=== PATIENT | male | born 1960 | race Hispanic/Latino ===

== ENCOUNTER 2017-08-06 09:41 | Emergency (ER) | payer OTHER ==
[~2017-08-06] VITALS: Ht 167.6 cm; Wt 88.5 kg
[~2017-08-06 09:41] MED LIST: PROTONIX40 MG PO; XARELTO10 MG PO
--- OUTSIDE RECORDS SUMMARY | 2017-08-06 09:47 | XMS REPORT ---
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 Allergies, Adverse Reactions, Alerts This patient has no known allergies or adverse reactions. Medications This patient has no known medications. Results Test Description Test Time Test Comments Text Results Atomic Results Result Comments CHEST SINGLE (PORTABLE) [place] [id number] Patient Name: KAYLI LAMB MR #: [id number] : 1960 Age/Sex: 57/M Req #: [id number] Adm Physician: Ordered by: HEBER FRANCO Report #: [id number] Location: ER Room/Bed: _ Procedure: [id number] DX/CHEST SINGLE (PORTABLE) Exam Date: 06/08/17 Exam Time: 1836 REPORT STATUS: Signed EXAMINATION : CHEST SINGLE (PORTABLE) 06/08/2017 6:25 PM COMPARISON: None INDICATION: Dyspnea, history of DVT DISCUSSION: LINES: None. LUNGS: The lungs are well inflated and clear. No pneumonia or pulmonary edema. PLEURA: No pleural effusion or pneumothorax. HEART AND MEDIASTINUM: The cardiomediastinal silhouette is unremarkable. BONES AND SOFT TISSUES : No acute osseous lesion. The soft tissues are normal. IMPRESSION: No acute cardiopulmonary disease. Jasper Dsouza MD Signed by: Dr. Jasper Dsouza M.D. on 06/08/2017 7:59 PM Dictated By: JASPER DSOUZA MD 60 Transcribed By: YEIMI on 06/08/171958 COPY TO: HEBER FRANCO
== END 2017-08-06 11:00 | disposition home or self-care (01) ==
LOC: FSED 09:41
DX: R50.9 Fever, unspecified (principal); J02.9 Acute pharyngitis, unspecified
CPT/HCPCS: 83518; 99282

== ENCOUNTER → 2017-09-25 | Outpatient (CLI) | payer SELFPAY ==
--- NOTE | 2017-09-25 10:48 | Cardiology Report ---
DATE OF STUDY: September 25, 2017 DOPPLER SCAN OF LEFT UPPER EXTREMITY VEINS The left arm veins were interrogated using the duplex scanning method. The veins were compressible. There was no definite deep venous thrombosis. CONCLUSIONS 1. No definite venous thrombosis seen involving the left arm veins. 2. The right arm was not studied. Job#: [id number] cc:STEFANO FORD MD
== END ==
LOC: RAD 08:38
PROVIDERS: ATTEND Internal Medicine Medical Oncology
DX: I82.622 Acute embolism and thrombosis of deep veins of left upper extremity (principal)
CPT/HCPCS: 93971

== ENCOUNTER 2025-03-27 10:10 | Inpatient (IN) | payer OTHER ==
[2025-03-17 15:15] LABS: BASOPHILS % 0.6 % (0.0-1.0); EOSINOPHILS % 2.0 % (0.0-6.0); LYMPHOCYTES % 16.9 % (18.0-39.1); MONOCYTES % 6.9 % (4.4-11.3); NEUTROPHILS % 73.3 % (38.7-80.0); RED CELL DISTRIBUTION WIDTH 13.0 % (11.7-14.4)
[2025-03-17 15:49] LABS: EST GLOMERULAR FILTRATION RATE 84.0 ML/MIN (>=60)
[~2025-03-27] VITALS: Ht 167.6 cm; Wt 92.5 kg
[~2025-03-27 10:10] MED LIST changes: +ASPIRIN81 MG PO; +FLOMAX0.4 MG PO; +PROTONIX20 MG PO; +VESICARE5 MG PO; +VISION PLUS LU1 EACH
[2025-03-27] MEDS ORDERED: LIDOCAINE HCL 2% LOCAL INJ 5 ML SDV VIAL INJ ONE ×2 (11:16→12:06)
[2025-03-27] MEDS ORDERED: PROPOFOL IV EMULSION 10 MG/ML 20 ML VIAL ONE ×2 (11:16→12:06)
[2025-03-27] MEDS ORDERED: ROCURONIUM BROMIDE 0 ML IV ONE (11:17)
[2025-03-27] MEDS ORDERED: FENTANYL CITRATE/PF 100MCG/2 ML INJ ONE (12:06)
[2025-03-27] MEDS ORDERED: SEVOFLURANE INHAL SOLN 250 ML PEN BTL ONE (12:06)
[2025-03-27] MEDS ORDERED: ROCURONIUM BROMIDE 1 ML IV ONE ×2 (12:06→13:56)
[2025-03-27] MEDS ORDERED: ACETAMINOPHEN 1000 MG/100 ML 100 ML IV ONE (12:06)
[2025-03-27] MEDS ORDERED: SUGAMMADEX SODIUM 200 MG/2 ML VIAL IV ONE (12:06)
[2025-03-27] MEDS ORDERED: EPINEPHRINE HCL 1:1000 1ML 1 MG/ML AMP ONE (12:37)
[2025-03-27] MEDS ORDERED: EPHEDRINE SULFATE INJ 50 MG/ML VIAL ONE (13:14)
[2025-03-27] MEDS ORDERED: LACTATED RINGER'S 1,000 ML ONE (15:00)
[2025-03-27] MEDS: SODIUM CHLORIDE 0.9% 1000ML 1,000 ML IV SCH (16:15)
[2025-03-27] MEDS ORDERED: ACETAMINOPHEN 1000 MG/100 ML IV PRN (16:15)
[2025-03-27] MEDS ORDERED: ONDANSETRON HCL INJ 2MG/ML 2ML 2 MG/ML VIAL IV PRN (16:15)
[2025-03-27] MEDS ORDERED: NALOXONE HCL INJ 0.4 MG/ML AMP IV PRN (16:15)
[2025-03-27] MEDS ORDERED: DIPHENHYDRAMINE HCL INJ 50 MG/ML VIAL IM PRN (16:15)
[2025-03-27] MEDS ORDERED: MORPHINE SULFATE 1 MG/ML 30ML PCA ONE (16:24)
[2025-03-27 16:37] LABS: BASOPHILS % 0.3 % (0.0-1.0); EOSINOPHILS % 0.3 % (0.0-6.0); LYMPHOCYTES % 13.6 % (18.0-39.1); MONOCYTES % 1.9 % (4.4-11.3); NEUTROPHILS % 83.3 % (38.7-80.0); RED CELL DISTRIBUTION WIDTH 13.0 % (11.7-14.4)
[2025-03-27] MEDS: MORPHINE SULFATE 1 MG/ML 30ML PCA IV PRN (16:46)
[2025-03-27 16:55] LABS: EST GLOMERULAR FILTRATION RATE 98.0 ML/MIN (>=60)
[2025-03-27 17:09] VITALS: BP 146/91; PULSE 73; RESP 18; TEMP 98.5; O2SAT 97
[2025-03-27] MEDS: SODIUM CHLORIDE 0.9% 250ML IRRIG IR SCH (17:40)
[2025-03-27 18:40] VITALS: BP 146/91; PULSE 73; RESP 18; TEMP 98.5; O2SAT 97
[2025-03-27 19:48] VITALS: BP 118/81; PULSE 74; RESP 18; TEMP 97.6; O2SAT 94
[2025-03-27] MEDS: CEFAZOLIN SODIUM 2 GM ONE (19:51)
[2025-03-27] MEDS: LACTATED RINGER'S 1,000 ML ONE (19:52)
[2025-03-27] MEDS: SODIUM CHLORIDE 0.9% 1000ML 1,000 ML ONE (19:53)
[2025-03-27 20:00] VITALS: BP 118/81; PULSE 74; RESP 18; TEMP 97.6; O2SAT 94
[2025-03-27 23:59] VITALS: BP 121/79; PULSE 79; RESP 20; TEMP 97.9; O2SAT 97
[2025-03-28] VITALS (10 sets, daily range): BP systolic 102–118; BP diastolic 67–76; PULSE 67–76; RESP 16–20; TEMP 97.7–98.9; O2SAT 96–99
[2025-03-28 04:58] LABS: BASOPHILS % 0.3 % (0.0-1.0); EOSINOPHILS % 0.0 % (0.0-6.0); LYMPHOCYTES % 7.4 % (18.0-39.1); MONOCYTES % 6.4 % (4.4-11.3); NEUTROPHILS % 85.6 % (38.7-80.0); RED CELL DISTRIBUTION WIDTH 12.8 % (11.7-14.4)
[2025-03-28 05:31] LABS: EST GLOMERULAR FILTRATION RATE 93.0 ML/MIN (>=60)
[2025-03-29] VITALS (8 sets, daily range): BP systolic 109–118; BP diastolic 69–77; PULSE 61–77; RESP 18–20; TEMP 97.7–98.1; O2SAT 96–100
[2025-03-29 04:45] LABS: BASOPHILS % 0.4 % (0.0-1.0); EOSINOPHILS % 0.3 % (0.0-6.0); LYMPHOCYTES % 20.5 % (18.0-39.1); MONOCYTES % 8.5 % (4.4-11.3); NEUTROPHILS % 69.9 % (38.7-80.0); RED CELL DISTRIBUTION WIDTH 13.0 % (11.7-14.4)
[2025-03-29 05:14] LABS: EST GLOMERULAR FILTRATION RATE 98.0 ML/MIN (>=60)
[2025-03-29] MEDS ORDERED: Morphine 4mg INJECTION 4 MG/ML INJ IV PRN (08:30)
[2025-03-29] MEDS: ACETAMINOPHEN 1000 MG/100 ML IV PRN (12:06)
[2025-03-29] MEDS: ONDANSETRON HCL INJ 2MG/ML 2ML 2 MG/ML VIAL IV PRN (15:05)
[2025-03-29] MEDS: HYDROCODONE/APAP 7.5MG-325MG 1 EA TAB PO PRN (15:05)
[2025-03-30 04:08] VITALS: BP 127/78; PULSE 63; RESP 18; TEMP 98.1; O2SAT 100
[2025-03-30 05:02] LABS: BASOPHILS % 0.4 % (0.0-1.0); EOSINOPHILS % 1.1 % (0.0-6.0); LYMPHOCYTES % 19.9 % (18.0-39.1); MONOCYTES % 9.5 % (4.4-11.3); NEUTROPHILS % 68.8 % (38.7-80.0); RED CELL DISTRIBUTION WIDTH 13.1 % (11.7-14.4)
[2025-03-30 05:18] LABS: EST GLOMERULAR FILTRATION RATE 102.0 ML/MIN (>=60)
[2025-03-30 06:40] VITALS: PULSE 74; RESP 20; O2SAT 95
[2025-03-30] MEDS: PANTOPRAZOLE SOD 40 MG TABEC PO SCH (07:30)
[2025-03-30 09:51] VITALS: BP 133/86; PULSE 82; RESP 16; TEMP 97.8; O2SAT 98
[2025-03-30 20:00] VITALS: BP 135/86; PULSE 62; RESP 16; TEMP 97.7; O2SAT 99
[2025-03-30 20:40] VITALS: PULSE 74; RESP 18; O2SAT 96
[2025-03-31] VITALS: BP 118/75; PULSE 62; RESP 18; TEMP 97.5; O2SAT 98
[2025-03-31 04:00] VITALS: BP 118/75; PULSE 62; RESP 18; TEMP 97.5; O2SAT 98
[2025-03-31 05:38] LABS: BASOPHILS % 0.5 % (0.0-1.0); EOSINOPHILS % 1.0 % (0.0-6.0); LYMPHOCYTES % 14.5 % (18.0-39.1); MONOCYTES % 7.9 % (4.4-11.3); NEUTROPHILS % 75.6 % (38.7-80.0); RED CELL DISTRIBUTION WIDTH 13.0 % (11.7-14.4)
[2025-03-31 06:08] LABS: EST GLOMERULAR FILTRATION RATE 101.0 ML/MIN (>=60)
[2025-03-31 07:34] VITALS: PULSE 68; RESP 18; O2SAT 98
[2025-03-31 08:52] VITALS: BP 124/84; PULSE 62; RESP 18; TEMP 98.7; O2SAT 97
[2025-03-31 12:00] VITALS: BP 132/81; PULSE 71; RESP 16; TEMP 97.7; O2SAT 100
[2025-03-31 13:19] VITALS: PULSE 71; RESP 18; O2SAT 97
[2025-03-31] MEDS: SENNA-S TABLET PO SCH (15:50)
== END 2025-03-31 18:18 | disposition home or self-care (01) | DRG 660 ==
LOC: OR 10:10 → PACU V 14:44 → MED/SURG 17:03
PROVIDERS: ADMIT Internal Medicine; ATTEND Internal Medicine
PROC: 0TN60ZZ Release Right Ureter, Open Approach (ICD-10-PCS; 2025-03-27)
PROC: 0T760DZ Dilation of Right Ureter with Intraluminal Device, Open Approach (ICD-10-PCS; 2025-03-27)
PROC: 0TP90DZ Removal of Intraluminal Device from Ureter, Open Approach (ICD-10-PCS; 2025-03-27)
PROC: 0D9670Z Drainage of Stomach with Drainage Device, Via Natural or Artificial Opening (ICD-10-PCS; principal; 2025-03-27 13:06)
DX: T83.592A Infection and inflammatory reaction due to indwelling ureteral stent, initial encounter (principal); N13.6 Pyonephrosis; T83.89XA Other specified complication of genitourinary prosthetic devices, implants and grafts, initial encounter; Z46.6 Encounter for fitting and adjustment of urinary device; N40.1 Benign prostatic hyperplasia with lower urinary tract symptoms; G89.18 Other acute postprocedural pain; R11.2 Nausea with vomiting, unspecified; R53.83 Other fatigue; E66.9 Obesity, unspecified; Z68.32 Body mass index [BMI] 32.0-32.9, adult; Y83.8 Other surgical procedures as the cause of abnormal reaction of the patient, or of later complication, without mention of misadventure at the time of the procedure; Y83.1 Surgical operation with implant of artificial internal device as the cause of abnormal reaction of the patient, or of later complication, without mention of misadventure at the time of the procedure; Y92.009 Unspecified place in unspecified non-institutional (private) residence as the place of occurrence of the external cause; Z79.899 Other long term (current) drug therapy; Z79.82 Long term (current) use of aspirin
CPT/HCPCS: 36415; 71045; 74018; 80048; 83735; 85025; 87086; 93005; 94799; C1769; C2617; J0169; J0690; J2003; J2270; J2405; J2470; J7030